=== PATIENT | female | born 2000 | race Caucasian/White ===

== ENCOUNTER 2021-12-11 21:09 | Emergency (ER) | payer OTHER | END 2021-12-11 21:28 | disposition home or self-care (01) | LOC: BURERS 21:09 | DX: M25.562 Pain in left knee (principal); M79.89 Other specified soft tissue disorders | CPT/HCPCS: 99283 ==

== ENCOUNTER 2022-03-25 22:06 | Emergency (ER) | payer MEDICAID, OTHER, SELFPAY | END 2022-03-25 23:10 | disposition home or self-care (01) | LOC: BURERS 22:06 | DX: O99.891 Other specified diseases and conditions complicating pregnancy (principal); M54.50 Low back pain, unspecified; R05.9 Cough, unspecified; Z3A.01 Less than 8 weeks gestation of pregnancy | CPT/HCPCS: 99283 ==

== ENCOUNTER 2022-07-24 19:55 | Emergency (ER) | payer OTHER ==
[2022-07-24 21:05] LABS: Bilirubin Negative (Negative); Blood, Urine Negative (Negative); Clarity Clear (Clear); Glucose, Urine (Dipstick) Negative (Negative); Ketone, Urine Negative (Negative); Leukocyte Negative (Negative); Nitrite Negative (Negative); Protein, Urine (Dipstick) 30 mg/dL (Neg-Trace); pH, Urine 6.5 (5.0-9.0)
[2022-07-24 21:28] LABS: Specific Gravity, Urine Greater/Equal 1.030 (1.005-1.030)
[2022-07-24 21:30] LABS: Bacteria/HPF 1+ HPF (None Seen); RBC/HPF 0-3 HPF (0-3); Squamous Epithelial 0-3 HPF (0-3); WBC/HPF None Seen HPF (0-3)
== END 2022-07-24 22:11 | disposition home or self-care (01) ==
LOC: BURERS 19:55
DX: O99.892 Other specified diseases and conditions complicating childbirth (principal); R14.1 Gas pain; K21.9 Gastro-esophageal reflux disease without esophagitis; O14.92 Unspecified pre-eclampsia, second trimester; Z3A.22 22 weeks gestation of pregnancy
CPT/HCPCS: 81003; 81015; 99284